=== PATIENT | female | born 1945 | race Two or more races ===

== ENCOUNTER 2023-06-25 16:39 | Emergency (ER) | payer BC ==
[~2023-06-25] VITALS: Ht 160 cm; Wt 56.8 kg
[2023-06-25 16:45] VITALS: PULSE 76; RESP 16; O2SAT 93
[2023-06-25 19:16] LABS: Urine Bacteria FEW /hpf (None Seen); Urine Blood 1+ /uL (Negative); Urine Clarity HAZY (Clear); Urine Color Yellow (Yellow); Urine Mucus MANY (None Seen); Urine Protein, UAD 2+ (Negative); Urine Specific Gravity 1.024 (1.001-1.035); Urine Urobilinogen Normal (Negative); Urine WBC 360 /hpf (0 - 5); Urine WBC Clumps PRESENT /hpf (None Seen); Urine pH 5.5 (5.0-8.0)
[2023-06-25 19:19] LABS: Amphetamine Screen, Urine Neg (NEGATIVE); Barbiturate Scree,Urine Neg (NEGATIVE); Benzodiazephine Screen, Urine Neg (NEGATIVE); Cannabinoid Screen, Urine Neg (NEGATIVE); Cocaine Screen, Urine Neg (NEGATIVE); Opiate Scree,Urine Neg (NEGATIVE); Phencyclidine Screen, Urine Neg (NEGATIVE)
[2023-06-25 19:30] VITALS: PULSE 77; RESP 17; O2SAT 94
[2023-06-25 20:38] LABS: Basophils # (auto) 0 10 ^3/uL (0-0.2); Basophils % (auto) 0.2 % (0.0-2.0); Eosinophils # (auto) 0 10 ^3/uL (0-0.8); Hematocrit 45.1 % (36.0-46.0); Lymphocytes # (auto) 0.5 10 ^3/uL (0.4-5.4); Lymphocytes % (auto) 3.4 % (10.0-50.0); Mean Corpuscular Hemoglobin 31.6 pg (28.0-32.0); Mean Corpuscular Hgb Conc. 33.3 g/dL (32.0-36.0); Mean Corpuscular Volume 94.9 fL (80.0-100.0); Monocytes % (auto) 6.3 % (0.0-12.0); Neutrophils # (auto) 14.1 10 ^3/uL (1.6-8.6); Neutrophils % (auto) 90.1 % (37.0-80.0); Red Blood Cells 4.76 10^6/uL (4.0-5.20); Red Cell Distribution Width 13.9 % (11.8-14.3); White Blood Cell 15.7 10^3/uL (4.4-10.8)
[2023-06-25 20:41] LABS: Lactic Acid w/Reflex 2.8 mmol/L (0.4-2.0)
[2023-06-25 20:42] LABS: Alanine Aminotransferase 22 U/L (7-40); Albumin 4.8 g/dL (3.2-4.8); Alkaline Phosphatase 111 U/L (46-116); Anion Gap 10 (5-15); Aspartate Aminotransferase 23 U/L (13-40); Blood Alcohol < 3.0 mg/dL (<10); Blood Urea Nitrogen 9 mg/dL (9-23); Calcium 9.8 mg/dL (8.7-10.4); Carbon Dioxide 26 mmol/L (20-30); Chloride 103 mmol/L (98-107); Creatine Kinase IFCC 269 U/L (34-145); Glucose 125 mg/dL (74-106); Magnesium 1.8 mg/dL (1.6-2.6); Potassium 3.1 mmol/L (3.5-5.1); Sodium 139 mmol/L (136-145)
[2023-06-25 20:43] LABS: Bilirubin, Total 0.6 mg/dL (0.2-1.0); Total Protein 7.7 g/dL (5.7-8.2)
[2023-06-25 22:29] LABS: Partial Thromboplastin Time 27.6 SEC (24.5-34.5); Prothrombin Time 10.5 sec (9.3-11.8)
[2023-06-26 01:01] VITALS: BP 125/65; PULSE 70; RESP 14; TEMP 98.7; O2SAT 93
== END 2023-06-26 01:33 | disposition short-term general hospital (02) ==
LOC: ER 16:39 → EDBD 16:39 → ER 06-26 01:30
DX: I63.9 Cerebral infarction, unspecified (principal); I21.4 Non-ST elevation (NSTEMI) myocardial infarction; Z79.82 Long term (current) use of aspirin
CPT/HCPCS: 36415; 70450; 71250; 72125; 73060; 74176; 80053; 80307; 80320; 81001; 82550; 83605; 83735; 84484; 85025; 85379; 85610; 85730; 87040; 93005

== ENCOUNTER 2023-07-13 10:53 | Inpatient (IN) | payer BC ==
[~2023-07-13] VITALS: Ht 162.6 cm; Wt 58.0 kg
[2023-07-13 17:00] VITALS: BP 112/63; PULSE 73; RESP 17; TEMP 97.9; O2SAT 95
[2023-07-13 18:01] VITALS: PULSE 73; RESP 17; O2SAT 95
[2023-07-13] MEDS ORDERED: ASPI-543 PO (18:18)
[2023-07-13] MEDS ORDERED: ATOR-47 PO (18:18)
[2023-07-13] MEDS ORDERED: CLOP75TA28 PO (18:19)
[2023-07-13] MEDS ORDERED: Glucerna 1.2 Cal 1Liter BOTTLE GT SCH (19:00)
[2023-07-13] MEDS ORDERED: NITROGLYCERIN 0.4 MG SL TAB SL PRN (19:00)
[2023-07-13] MEDS ORDERED: ONDANSETRON ODT 4 MG TAB GT PRN (19:00)
[2023-07-13] MEDS ORDERED: MORPHINE SULFATE INJ 2 MG/ml SYRG IV PRN (19:00)
[2023-07-13] MEDS ORDERED: DEXTROSE (50%) 50ML SYRG IV PRN (19:15)
[2023-07-13] MEDS ORDERED: HYDROmorphone HCL 2 MG/ML VL/or syr IV PRN (19:45)
[2023-07-13 20:00] VITALS: PULSE 74
[2023-07-13 22:00] VITALS: BP 133/55; PULSE 72; RESP 18; TEMP 97.9; O2SAT 92
[2023-07-13] MEDS: ATORVASTATIN 20 MG TAB NG SCH (22:00)
[2023-07-14] MEDS: ACCU-CHEK COMFORT CURVE STRIP VI SCH ×4 (00:30→18:51)
[2023-07-14 05:00] VITALS: BP 118/58; PULSE 74; RESP 18; TEMP 97.6; O2SAT 93
[2023-07-14] MEDS: InsuLIN REG 1unit/0.01ml Soln (100units/ml) SC SCH ×4 (06:00→18:00)
[2023-07-14 06:08] LABS: Alanine Aminotransferase 28 U/L (7-40); Albumin 3.7 g/dL (3.2-4.8); Alkaline Phosphatase 104 U/L (46-116); Anion Gap 5 (5-15); Aspartate Aminotransferase 21 U/L (13-40); Bilirubin, Total 0.6 mg/dL (0.2-1.0); Blood Urea Nitrogen 12 mg/dL (9-23); Carbon Dioxide 25 mmol/L (20-30); Chloride 105 mmol/L (98-107); Potassium 4.1 mmol/L (3.5-5.1); Sodium 135 mmol/L (136-145); Total Protein 6.4 g/dL (5.7-8.2)
[2023-07-14 06:20] LABS: Basophils # (auto) 0 10 ^3/uL (0-0.2); Basophils % (auto) 0.5 % (0.0-2.0); Eosinophils # (auto) 0.2 10 ^3/uL (0-0.8); Eosinophils % (auto) 2.1 % (0.0-7.0); Hematocrit 35.7 % (36.0-46.0); Lymphocytes # (auto) 0.9 10 ^3/uL (0.4-5.4); Lymphocytes % (auto) 12.6 % (10.0-50.0); Mean Corpuscular Hemoglobin 31.6 pg (28.0-32.0); Mean Corpuscular Hgb Conc. 33.6 g/dL (32.0-36.0); Mean Corpuscular Volume 94.1 fL (80.0-100.0); Monocytes # (auto) 0.5 10 ^3/uL (0-1.3); Monocytes % (auto) 7.6 % (0.0-12.0); Neutrophils # (auto) 5.4 10 ^3/uL (1.6-8.6); Neutrophils % (auto) 77.2 % (37.0-80.0); Nucleated Red Blood Cells % 0.1 %; Red Blood Cells 3.79 10^6/uL (4.0-5.20); Red Cell Distribution Width 13.5 % (11.8-14.3)
[2023-07-14 07:35] LABS: Glucose 96 mg/dL (74-106)
[2023-07-14 08:00] VITALS: BP 107/57; PULSE 71; PULSE 78; RESP 20; TEMP 98.4; O2SAT 100
[2023-07-14] MEDS ORDERED: ASPirin 81 mg TAB NG SCH (10:00)
[2023-07-14 11:06] LABS: Folate (Folic Acid) > 24.00 ng/mL (>5.38)
[2023-07-14 11:07] LABS: CRP High Sensitivity 0.89 mg/dL (<1.0)
[2023-07-14 11:52] LABS: Magnesium 2.2 mg/dL (1.6-2.6)
[2023-07-14 12:00] VITALS: BP 107/61; PULSE 81; RESP 20; TEMP 98.2; O2SAT 97
[2023-07-14 12:33] LABS: INR 1.04 (0.9-1.15); Prothrombin Time 10.9 sec (9.3-11.8)
[2023-07-14 13:15] LABS: % Iron Saturation 17.9 % (15-50)
[2023-07-14] MEDS: CLOPIDOGREL BISULFATE 75 MG TAB NG SCH (13:18)
[2023-07-14] MEDS: ASCORBIC ACID 500 MG TAB NG SCH (13:18)
[2023-07-14] MEDS: LISINOPRIL 5 MG TAB NG SCH (13:19)
[2023-07-14 16:00] VITALS: BP 116/68; PULSE 94; RESP 20; TEMP 98.2; O2SAT 94
[2023-07-14 20:00] VITALS: PULSE 72; RESP 17
[2023-07-14 22:00] VITALS: BP 101/56; PULSE 78; RESP 17; TEMP 97.4; O2SAT 96
[2023-07-14] MEDS: ATORVASTATIN 20 MG TAB NG SCH (23:42)
[2023-07-15] VITALS (7 sets, daily range): BP systolic 115–126; BP diastolic 55–65; PULSE 70–85; RESP 16–20; TEMP 97.4–98.4; O2SAT 94–99
[2023-07-15] MEDS: ACCU-CHEK COMFORT CURVE STRIP VI SCH ×4 (00:24→17:45)
[2023-07-15] MEDS: InsuLIN REG 1unit/0.01ml Soln (100units/ml) SC SCH ×4 (05:30→17:44)
[2023-07-15 07:00] LABS: Basophils # (auto) 0 10 ^3/uL (0-0.2); Basophils % (auto) 0.4 % (0.0-2.0); Eosinophils # (auto) 0.2 10 ^3/uL (0-0.8); Eosinophils % (auto) 2.9 % (0.0-7.0); Hematocrit 37.3 % (36.0-46.0); Hemoglobin 12.3 g/dL (12.2-16.2); Lymphocytes # (auto) 0.8 10 ^3/uL (0.4-5.4); Lymphocytes % (auto) 9.8 % (10.0-50.0); Mean Corpuscular Hemoglobin 31.2 pg (28.0-32.0); Mean Corpuscular Volume 94.7 fL (80.0-100.0); Monocytes # (auto) 0.5 10 ^3/uL (0-1.3); Monocytes % (auto) 6.5 % (0.0-12.0); Neutrophils # (auto) 6.5 10 ^3/uL (1.6-8.6); Neutrophils % (auto) 80.4 % (37.0-80.0); Nucleated Red Blood Cells % 0.1 %; Red Blood Cells 3.93 10^6/uL (4.0-5.20); Red Cell Distribution Width 13.9 % (11.8-14.3); White Blood Cell 8.1 10^3/uL (4.4-10.8)
[2023-07-15 07:02] LABS: Alanine Aminotransferase 33 U/L (7-40); Alkaline Phosphatase 110 U/L (46-116); Anion Gap 7 (5-15); Aspartate Aminotransferase 19 U/L (13-40); BUN/Creatinine Ratio 38.5 (10.0-20.0); Blood Urea Nitrogen 20 mg/dL (9-23); Calcium 8.9 mg/dL (8.7-10.4); Carbon Dioxide 25 mmol/L (20-30); Chloride 106 mmol/L (98-107); Glucose 114 mg/dL (74-106); Magnesium 2.1 mg/dL (1.6-2.6); Sodium 138 mmol/L (136-145)
[2023-07-15 07:03] LABS: Albumin 3.7 g/dL (3.2-4.8); Bilirubin, Total 0.4 mg/dL (0.2-1.0); Total Protein 6.1 g/dL (5.7-8.2)
[2023-07-15] MEDS: ASCORBIC ACID 500 MG TAB NG SCH (10:54)
[2023-07-15] MEDS: CLOPIDOGREL BISULFATE 75 MG TAB NG SCH (10:54)
[2023-07-15] MEDS: LISINOPRIL 5 MG TAB NG SCH (10:55)
[2023-07-15] MEDS ORDERED: BARIUM SULFATE 98% 340 GM PWDR ONE (14:20)
[2023-07-15] MEDS: ATORVASTATIN 20 MG TAB NG SCH (22:52)
[2023-07-16] VITALS (7 sets, daily range): BP systolic 111–125; BP diastolic 54–74; PULSE 62–92; RESP 17–20; TEMP 97.7–98.5; O2SAT 95–96
[2023-07-16] MEDS: ACCU-CHEK COMFORT CURVE STRIP VI SCH ×2 (00:03→06:00)
[2023-07-16 05:48] LABS: Basophils # (auto) 0 10 ^3/uL (0-0.2); Basophils % (auto) 0.4 % (0.0-2.0); Eosinophils # (auto) 0.3 10 ^3/uL (0-0.8); Eosinophils % (auto) 3.5 % (0.0-7.0); Hematocrit 37.3 % (36.0-46.0); Hemoglobin 12.4 g/dL (12.2-16.2); Lymphocytes # (auto) 0.9 10 ^3/uL (0.4-5.4); Lymphocytes % (auto) 11.6 % (10.0-50.0); Mean Corpuscular Hemoglobin 31.2 pg (28.0-32.0); Mean Corpuscular Hgb Conc. 33.3 g/dL (32.0-36.0); Mean Corpuscular Volume 93.8 fL (80.0-100.0); Monocytes # (auto) 0.5 10 ^3/uL (0-1.3); Monocytes % (auto) 6.7 % (0.0-12.0); Neutrophils # (auto) 6.3 10 ^3/uL (1.6-8.6); Neutrophils % (auto) 77.8 % (37.0-80.0); Red Blood Cells 3.97 10^6/uL (4.0-5.20); Red Cell Distribution Width 13.8 % (11.8-14.3); White Blood Cell 8.1 10^3/uL (4.4-10.8)
[2023-07-16] MEDS: InsuLIN REG 1unit/0.01ml Soln (100units/ml) SC SCH ×2 (06:00)
[2023-07-16 06:06] LABS: Alanine Aminotransferase 36 U/L (7-40); Albumin 3.7 g/dL (3.2-4.8); Alkaline Phosphatase 105 U/L (46-116); Anion Gap 7 (5-15); Aspartate Aminotransferase 24 U/L (13-40); BUN/Creatinine Ratio 35.8 (10.0-20.0); Bilirubin, Total 0.3 mg/dL (0.2-1.0); Blood Urea Nitrogen 19 mg/dL (9-23); Carbon Dioxide 27 mmol/L (20-30); Chloride 106 mmol/L (98-107); Glucose 115 mg/dL (74-106); Magnesium 2.1 mg/dL (1.6-2.6); Potassium 4.1 mmol/L (3.5-5.1); Sodium 140 mmol/L (136-145); Total Protein 6.1 g/dL (5.7-8.2)
[2023-07-16] MEDS: ASCORBIC ACID 500 MG TAB NG SCH (10:06)
[2023-07-16] MEDS: LISINOPRIL 5 MG TAB NG SCH (10:06)
[2023-07-16] MEDS: CLOPIDOGREL BISULFATE 75 MG TAB NG SCH (10:06)
[2023-07-16] MEDS ORDERED: PANTOPRAZOLE 40 MG/10 ML VIAL INJ IV ONE (11:15)
[2023-07-16 14:41] LABS: Hematocrit 36.7 % (36.0-46.0); Hemoglobin 12.2 g/dL (12.2-16.2)
[2023-07-16 17:46] LABS: Hematocrit 37.4 % (36.0-46.0); Hemoglobin 12.4 g/dL (12.2-16.2)
[2023-07-16] MEDS: ATORVASTATIN 20 MG TAB NG SCH (22:04)
[2023-07-17 05:00] VITALS: BP 134/44; PULSE 85; RESP 18; TEMP 98.2; O2SAT 93
[2023-07-17 05:40] LABS: Basophils # (auto) 0 10 ^3/uL (0-0.2); Basophils % (auto) 0.5 % (0.0-2.0); Eosinophils # (auto) 0.3 10 ^3/uL (0-0.8); Eosinophils % (auto) 4.9 % (0.0-7.0); Hematocrit 36.7 % (36.0-46.0); Hemoglobin 12.2 g/dL (12.2-16.2); Lymphocytes # (auto) 1.4 10 ^3/uL (0.4-5.4); Lymphocytes % (auto) 21.5 % (10.0-50.0); Mean Corpuscular Hemoglobin 31.1 pg (28.0-32.0); Mean Corpuscular Hgb Conc. 33.1 g/dL (32.0-36.0); Mean Corpuscular Volume 93.9 fL (80.0-100.0); Monocytes # (auto) 0.4 10 ^3/uL (0-1.3); Monocytes % (auto) 6.7 % (0.0-12.0); Neutrophils # (auto) 4.2 10 ^3/uL (1.6-8.6); Neutrophils % (auto) 66.4 % (37.0-80.0); Red Blood Cells 3.91 10^6/uL (4.0-5.20); White Blood Cell 6.3 10^3/uL (4.4-10.8)
[2023-07-17 06:00] LABS: Anion Gap 7 (5-15); Carbon Dioxide 25 mmol/L (20-30); Chloride 109 mmol/L (98-107); Potassium 3.9 mmol/L (3.5-5.1); Sodium 141 mmol/L (136-145)
[2023-07-17 06:02] LABS: Calcium 8.9 mg/dL (8.7-10.4)
[2023-07-17 06:06] LABS: Glucose 97 mg/dL (74-106)
[2023-07-17 06:07] LABS: BUN/Creatinine Ratio 29.2 (10.0-20.0); Blood Urea Nitrogen 14 mg/dL (9-23)
[2023-07-17 08:00] VITALS: BP 130/59; PULSE 69; PULSE 76; RESP 20; TEMP 98.6; O2SAT 98
[2023-07-17] MEDS: ASCORBIC ACID 500 MG TAB NG SCH (10:07)
[2023-07-17] MEDS: CLOPIDOGREL BISULFATE 75 MG TAB NG SCH (10:08)
[2023-07-17] MEDS: LISINOPRIL 5 MG TAB NG SCH (10:13)
[2023-07-17] MEDS: PANTOPRAZOLE 40 MG/10 ML VIAL INJ IV SCH (10:13)
[2023-07-17 13:00] VITALS: BP 118/53; PULSE 66; RESP 18; TEMP 98.6; O2SAT 94
[2023-07-17 17:00] VITALS: BP 117/48; PULSE 62; RESP 20; TEMP 98.5; O2SAT 97
[2023-07-17 20:00] VITALS: PULSE 68; O2SAT 96
[2023-07-17] MEDS: ATORVASTATIN 20 MG TAB NG SCH (21:46)
[2023-07-17 22:00] VITALS: BP 126/50; PULSE 63; RESP 17; TEMP 98; O2SAT 95
[2023-07-18] VITALS (7 sets, daily range): BP systolic 110–140; BP diastolic 42–69; PULSE 55–92; RESP 16–21; TEMP 97.9–98.2; O2SAT 92–97
[2023-07-18 07:18] LABS: Basophils # (auto) 0 10 ^3/uL (0-0.2); Basophils % (auto) 0.6 % (0.0-2.0); Eosinophils # (auto) 0.2 10 ^3/uL (0-0.8); Eosinophils % (auto) 3.6 % (0.0-7.0); Hematocrit 39.3 % (36.0-46.0); Hemoglobin 12.8 g/dL (12.2-16.2); Lymphocytes # (auto) 1.2 10 ^3/uL (0.4-5.4); Lymphocytes % (auto) 18.8 % (10.0-50.0); Mean Corpuscular Hemoglobin 30.9 pg (28.0-32.0); Mean Corpuscular Hgb Conc. 32.7 g/dL (32.0-36.0); Mean Corpuscular Volume 94.4 fL (80.0-100.0); Monocytes # (auto) 0.4 10 ^3/uL (0-1.3); Monocytes % (auto) 6.1 % (0.0-12.0); Neutrophils # (auto) 4.5 10 ^3/uL (1.6-8.6); Neutrophils % (auto) 70.9 % (37.0-80.0); Red Blood Cells 4.16 10^6/uL (4.0-5.20); Red Cell Distribution Width 13.9 % (11.8-14.3); White Blood Cell 6.3 10^3/uL (4.4-10.8)
[2023-07-18 07:30] LABS: Chloride 109 mmol/L (98-107); Potassium 4.4 mmol/L (3.5-5.1); Sodium 140 mmol/L (136-145)
[2023-07-18 07:31] LABS: Anion Gap 5 (5-15); Carbon Dioxide 26 mmol/L (20-30)
[2023-07-18 07:32] LABS: Calcium 9.1 mg/dL (8.5-10.1)
[2023-07-18 07:36] LABS: Glucose 90 mg/dL (74-106)
[2023-07-18 07:37] LABS: BUN/Creatinine Ratio 27.7 (10.0-20.0); Blood Urea Nitrogen 13 mg/dL (9-23)
[2023-07-18 09:18] LABS: Magnesium 2.1 mg/dL (1.6-2.6)
[2023-07-18] MEDS: CLOPIDOGREL BISULFATE 75 MG TAB NG SCH (09:34)
[2023-07-18] MEDS: ASCORBIC ACID 500 MG TAB NG SCH (09:34)
[2023-07-18] MEDS: PANTOPRAZOLE 40 MG/10 ML VIAL INJ IV SCH (09:34)
[2023-07-18] MEDS: LISINOPRIL 5 MG TAB NG SCH (09:34)
[2023-07-18] MEDS ORDERED: CLOP75TA28 PO (15:12)
[2023-07-18] MEDS ORDERED: ATOR40TA52 PO (15:12)
[2023-07-18] MEDS ORDERED: LISI-275 PO (15:12)
[2023-07-18] MEDS ORDERED: ASCO500T11 PO (15:12)
[2023-07-18] MEDS ORDERED: PANT40TA2 PO (15:12)
[2023-07-18] MEDS: ATORVASTATIN 20 MG TAB NG SCH (21:44)
[2023-07-19 05:00] VITALS: BP 109/49; PULSE 62; RESP 17; TEMP 98; O2SAT 97
[2023-07-19 08:00] VITALS: BP 107/56; PULSE 59; PULSE 63; RESP 20; TEMP 98.4; O2SAT 98
[2023-07-19] MEDS: LISINOPRIL 5 MG TAB NG SCH (08:39)
[2023-07-19] MEDS: CLOPIDOGREL BISULFATE 75 MG TAB NG SCH (08:40)
[2023-07-19] MEDS: ASCORBIC ACID 500 MG TAB NG SCH (08:40)
[2023-07-19 08:50] LABS: Basophils # (auto) 0 10 ^3/uL (0-0.2); Basophils % (auto) 0.3 % (0.0-2.0); Eosinophils # (auto) 0.2 10 ^3/uL (0-0.8); Eosinophils % (auto) 2.2 % (0.0-7.0); Hematocrit 40.9 % (36.0-46.0); Hemoglobin 13.4 g/dL (12.2-16.2); Lymphocytes # (auto) 1.4 10 ^3/uL (0.4-5.4); Lymphocytes % (auto) 15.8 % (10.0-50.0); Mean Corpuscular Hemoglobin 30.9 pg (28.0-32.0); Mean Corpuscular Hgb Conc. 32.7 g/dL (32.0-36.0); Mean Corpuscular Volume 94.6 fL (80.0-100.0); Monocytes # (auto) 0.5 10 ^3/uL (0-1.3); Monocytes % (auto) 5.4 % (0.0-12.0); Neutrophils # (auto) 6.7 10 ^3/uL (1.6-8.6); Neutrophils % (auto) 76.3 % (37.0-80.0); Nucleated Red Blood Cells % 0.1 %; Red Blood Cells 4.33 10^6/uL (4.0-5.20); White Blood Cell 8.7 10^3/uL (4.4-10.8)
[2023-07-19] MEDS: PANTOPRAZOLE 40 MG/10 ML VIAL INJ IV SCH (08:51)
[2023-07-19 08:55] LABS: Chloride 108 mmol/L (98-107); Potassium 4.3 mmol/L (3.5-5.1); Sodium 137 mmol/L (136-145)
[2023-07-19 08:56] LABS: Anion Gap 6 (5-15); Calcium 9.3 mg/dL (8.5-10.1); Carbon Dioxide 23 mmol/L (20-30)
[2023-07-19 09:01] LABS: Blood Urea Nitrogen 7 mg/dL (9-23); Glucose 106 mg/dL (74-106)
[2023-07-19 12:00] VITALS: BP 134/48; PULSE 102; RESP 20; TEMP 98.1; O2SAT 98
[2023-07-19 16:00] VITALS: BP 124/48; PULSE 87; RESP 20; TEMP 98.2; O2SAT 100
[2023-07-19 20:00] VITALS: O2SAT 96
[2023-07-19 22:00] VITALS: BP 111/52; PULSE 66; RESP 16; TEMP 97.1; O2SAT 97
[2023-07-19] MEDS: ATORVASTATIN 20 MG TAB NG SCH (22:05)
[2023-07-20 05:00] VITALS: BP 99/48; PULSE 71; RESP 17; TEMP 97.7; O2SAT 97
[2023-07-20 06:00] LABS: Basophils # (auto) 0 10 ^3/uL (0-0.2); Basophils % (auto) 0.4 % (0.0-2.0); Eosinophils # (auto) 0.1 10 ^3/uL (0-0.8); Eosinophils % (auto) 2.1 % (0.0-7.0); Hematocrit 37.2 % (36.0-46.0); Hemoglobin 12.3 g/dL (12.2-16.2); Lymphocytes # (auto) 1.4 10 ^3/uL (0.4-5.4); Mean Corpuscular Hgb Conc. 32.9 g/dL (32.0-36.0); Monocytes # (auto) 0.4 10 ^3/uL (0-1.3); Monocytes % (auto) 7.1 % (0.0-12.0); Neutrophils # (auto) 4.1 10 ^3/uL (1.6-8.6); Neutrophils % (auto) 67.4 % (37.0-80.0); Red Blood Cells 3.96 10^6/uL (4.0-5.20); Red Cell Distribution Width 13.6 % (11.8-14.3); White Blood Cell 6.1 10^3/uL (4.4-10.8)
[2023-07-20 06:06] LABS: Chloride 108 mmol/L (98-107); Potassium 4.2 mmol/L (3.5-5.1); Sodium 138 mmol/L (136-145)
[2023-07-20 06:07] LABS: Anion Gap 6 (5-15); Calcium 8.7 mg/dL (8.7-10.4); Carbon Dioxide 24 mmol/L (20-30)
[2023-07-20 06:12] LABS: BUN/Creatinine Ratio 22.6 (10.0-20.0); Blood Urea Nitrogen 12 mg/dL (9-23); Glucose 94 mg/dL (74-106)
[2023-07-20 06:13] LABS: Magnesium 1.9 mg/dL (1.6-2.6)
[2023-07-20 08:00] VITALS: BP 104/53; PULSE 73; RESP 20; TEMP 98; O2SAT 95; O2SAT 96
[2023-07-20] MEDS ORDERED: ONDANSETRON ODT 4 MG TAB PO PRN (09:00)
[2023-07-20] MEDS: ASCORBIC ACID 500 MG TAB PO SCH (09:59)
[2023-07-20] MEDS: PANTOPRAZOLE 40 MG/10 ML VIAL INJ IV SCH (09:59)
[2023-07-20] MEDS: CLOPIDOGREL BISULFATE 75 MG TAB PO SCH (09:59)
[2023-07-20] MEDS ORDERED: LISINOPRIL 5 MG TAB PO SCH (10:00)
[2023-07-20] MEDS ORDERED: ASPirin 81 mg TAB PO SCH (10:00)
[2023-07-20 12:00] VITALS: BP 111/53; PULSE 58; RESP 20; TEMP 97.8; O2SAT 95
[2023-07-20 16:00] VITALS: BP 120/54; PULSE 74; RESP 20; TEMP 97.9; O2SAT 97
[2023-07-20] MEDS: ATORVASTATIN 20 MG TAB PO SCH (21:24)
[2023-07-20] MEDS: METOPROLOL TARTRATE 25 MG TAB PO SCH (21:40)
[2023-07-20 22:00] VITALS: BP 99/49; PULSE 63; RESP 18; TEMP 98; O2SAT 94
[2023-07-21 06:31] LABS: Anion Gap 8 (5-15); Carbon Dioxide 22 mmol/L (20-30); Chloride 108 mmol/L (98-107); Potassium 3.8 mmol/L (3.5-5.1); Sodium 138 mmol/L (136-145)
[2023-07-21 06:33] LABS: Calcium 8.6 mg/dL (8.7-10.4)
[2023-07-21 06:37] LABS: Glucose 88 mg/dL (74-106)
[2023-07-21 06:38] LABS: BUN/Creatinine Ratio 25.5 (10.0-20.0); Blood Urea Nitrogen 12 mg/dL (9-23)
[2023-07-21 06:45] LABS: Basophils # (auto) 0 10 ^3/uL (0-0.2); Basophils % (auto) 0.4 % (0.0-2.0); Eosinophils # (auto) 0.1 10 ^3/uL (0-0.8); Eosinophils % (auto) 2.3 % (0.0-7.0); Hemoglobin 11.6 g/dL (12.2-16.2); Lymphocytes # (auto) 1.5 10 ^3/uL (0.4-5.4); Lymphocytes % (auto) 25.1 % (10.0-50.0); Mean Corpuscular Hemoglobin 31.3 pg (28.0-32.0); Mean Corpuscular Hgb Conc. 33.1 g/dL (32.0-36.0); Mean Corpuscular Volume 94.6 fL (80.0-100.0); Monocytes # (auto) 0.5 10 ^3/uL (0-1.3); Monocytes % (auto) 7.7 % (0.0-12.0); Neutrophils # (auto) 3.8 10 ^3/uL (1.6-8.6); Neutrophils % (auto) 64.5 % (37.0-80.0); Nucleated Red Blood Cells % 0.1 %; Red Blood Cells 3.71 10^6/uL (4.0-5.20); Red Cell Distribution Width 13.9 % (11.8-14.3); White Blood Cell 5.8 10^3/uL (4.4-10.8)
[2023-07-21 08:00] VITALS: PULSE 73; RESP 18; O2SAT 96
[2023-07-21 09:00] VITALS: BP 128/64; PULSE 73; RESP 18; TEMP 98.2; O2SAT 96
[2023-07-21] MEDS: METOPROLOL TARTRATE 25 MG TAB PO SCH ×2 (09:57→22:00)
[2023-07-21] MEDS: PANTOPRAZOLE 40 MG/10 ML VIAL INJ IV SCH (09:57)
[2023-07-21] MEDS: ASCORBIC ACID 500 MG TAB PO SCH (09:58)
[2023-07-21] MEDS: CLOPIDOGREL BISULFATE 75 MG TAB PO SCH (09:58)
[2023-07-21 13:00] VITALS: BP 113/56; PULSE 74; RESP 18; TEMP 98.4; O2SAT 97
[2023-07-21 17:08] VITALS: BP 118/56; PULSE 62; RESP 18; TEMP 97.7; O2SAT 95
[2023-07-21 20:00] VITALS: PULSE 80; RESP 18; O2SAT 95
[2023-07-21 22:00] VITALS: BP 118/47; PULSE 66; RESP 18; TEMP 97.5; O2SAT 94
[2023-07-21] MEDS: ATORVASTATIN 20 MG TAB PO SCH (22:32)
[2023-07-22 05:00] VITALS: BP 112/57; PULSE 61; RESP 18; TEMP 97.5; O2SAT 94
[2023-07-22 07:09] LABS: Basophils # (auto) 0 10 ^3/uL (0-0.2); Basophils % (auto) 0.4 % (0.0-2.0); Eosinophils # (auto) 0.1 10 ^3/uL (0-0.8); Eosinophils % (auto) 2.3 % (0.0-7.0); Hemoglobin 11.9 g/dL (12.2-16.2); Lymphocytes # (auto) 1.3 10 ^3/uL (0.4-5.4); Lymphocytes % (auto) 22.1 % (10.0-50.0); Mean Corpuscular Hemoglobin 31.4 pg (28.0-32.0); Monocytes # (auto) 0.4 10 ^3/uL (0-1.3); Monocytes % (auto) 7.1 % (0.0-12.0); Neutrophils # (auto) 3.9 10 ^3/uL (1.6-8.6); Neutrophils % (auto) 68.1 % (37.0-80.0); Nucleated Red Blood Cells % 0.1 %; Red Blood Cells 3.79 10^6/uL (4.0-5.20); Red Cell Distribution Width 13.9 % (11.8-14.3); White Blood Cell 5.8 10^3/uL (4.4-10.8)
[2023-07-22 07:27] LABS: Anion Gap 8 (5-15); Carbon Dioxide 24 mmol/L (20-30); Chloride 107 mmol/L (98-107); Sodium 139 mmol/L (136-145)
[2023-07-22 07:29] LABS: Calcium 8.8 mg/dL (8.5-10.1)
[2023-07-22 07:33] LABS: Blood Urea Nitrogen 8 mg/dL (9-23); Glucose 88 mg/dL (74-106)
[2023-07-22 08:00] VITALS: BP 112/58; PULSE 67; RESP 16; TEMP 97.8; O2SAT 97
[2023-07-22] MEDS: METOPROLOL TARTRATE 25 MG TAB PO SCH ×2 (10:00→11:22)
[2023-07-22] MEDS: PANTOPRAZOLE 40 MG/10 ML VIAL INJ IV SCH (11:12)
[2023-07-22] MEDS: CLOPIDOGREL BISULFATE 75 MG TAB PO SCH (11:13)
[2023-07-22] MEDS: ASCORBIC ACID 500 MG TAB PO SCH (11:13)
[2023-07-22 12:00] VITALS: BP 140/56; PULSE 72; RESP 16; TEMP 97.8; O2SAT 99
[2023-07-22 13:29] VITALS: BP 140/56; PULSE 72; RESP 16; TEMP 97.8; O2SAT 99
== END 2023-07-22 14:30 | DRG 149 ==
LOC: CENTRAL 15:47 → TELE-CENTR 07-15 18:41 → CENTRAL 07-20 10:58
PROVIDERS: ADMIT Internal Medicine
DX: R42 Dizziness and giddiness (principal); D64.9 Anemia, unspecified; E78.5 Hyperlipidemia, unspecified; H91.90 Unspecified hearing loss, unspecified ear; I25.2 Old myocardial infarction; Z86.73 Personal history of transient ischemic attack (TIA), and cerebral infarction without residual deficits; I12.9 Hypertensive chronic kidney disease with stage 1 through stage 4 chronic kidney disease, or unspecified chronic kidney disease; N18.9 Chronic kidney disease, unspecified; Z79.02 Long term (current) use of antithrombotics/antiplatelets; R79.89 Other specified abnormal findings of blood chemistry
CPT/HCPCS: 36415; 71045; 74230; 80048; 80053; 80061; 82270; 82306; 82607; 82746; 82962; 83036; 83540; 83550; 83605; 83735; 83880; 84443; 84484; 85014; 85018; 85025; 85610; 86141; 87081; 92610; 92611; 97110; 97116; 97163; 97530; C9113; G0378; J1815